=== PATIENT | male | born 1970 | race Caucasian/White ===

== ENCOUNTER 2017-10-30 19:41 | Emergency (ER) | payer OTHER ==
[~2017-10-30] VITALS: Ht 185.4 cm; Wt 93.7 kg
[2017-10-30 19:45] VITALS: BP 161/98; PULSE 70; RESP 14; TEMP 97.9; O2SAT 96
[2017-10-30] MEDS ORDERED: ASPI-516 CHEW (19:53)
--- NOTE | 2017-10-30 19:58 | PD ---
HPI Chief Complaint: Foreign Body Time Seen by Provider: 19:48 Travel History International Travel<30 days: No Contact w/Intl Traveler<30days: No Traveled to known affect area: No History of Present Illness HPI 47-year-old male presents to the emergency department for evaluation of a fishhook embedded in the right calf for approximately 1 hour. Patient states that it was sticking out but he cut it off thinking that that was the appropriate way to remove it. Reports very mild pain at the site. Is uncertain of his tetanus status. Has no other symptoms to report. PFSH Social History Alcohol Use: Yes Tobacco Use: No Substance Use: No Allergies-Medications (Allergen,Severity, Reaction): Coded Allergies: No Known Allergies (Unverified , 10/30/17) Reported Meds & Prescriptions Reported Meds & Active Scripts Active Ibuprofen 600 Mg Tab 600 Mg PO Q8HR PRN Cipro (Ciprofloxacin HCl) 500 Mg Tab 500 Mg PO BID 10 Days Reported Aspirin 81 Mg Chew 81 Mg CHEW DAILY Review of Systems Except as stated in HPI: all other systems reviewed are Neg Physical Exam Narrative GENERAL: Well-nourished, well-developed male patient, ambulatory and in no acute distress. SKIN: Focused skin assessment warm/dry. HEAD: Normocephalic. EYES: No scleral icterus. No injection or drainage. NECK: Supple, trachea midline. No JVD or lymphadenopathy. CARDIOVASCULAR: Regular rate and rhythm without murmurs, gallops, or rubs. RESPIRATORY: Breath sounds equal bilaterally. No accessory muscle use. MUSCULOSKELETAL: No cyanosis, or edema. There is a puncture wound in the mid right calf. Bleeding is controlled. No visible foreign body BACK: Nontender without obvious deformity. No CVA tenderness. Data Data Last Documented VS Vital Signs Date Time Temp Pulse Resp B/P (MAP) Pulse Ox O2 Delivery O2 Flow Rate FiO2 10/30/17 19:45 97.9 70 14 161/98 (119) 96 Orders Orders Lidocai-Epi 1%-1:100,000 Inj (Xylocaine- (10/30/17 20:00) Tibia/Fibula (Ap/Lat) (10/30/17 ) Tetanus/Diphtheria Tox Adult (Tetanus/Di (10/30/17 20:15) Acetamin-Hydrocod 325-5 Mg ([place] 5-325 (10/30/17 20:15) Ed Discharge Order (10/30/17 21:09) [facility] Medical Decision Making Medical Screen Exam Complete: Yes Emergency Medical Condition: Yes Medical Record Reviewed: Yes Differential Diagnosis Foreign body versus puncture wound versus hematoma versus abscess versus cellulitis Narrative Course 47-year-old male presents to the emergency department for evaluation of a fishhook embedded in the right calf. The foreign body is not visible. It is not palpable. There is a puncture wound where the patient states it went in. X -ray imaging confirms a foreign body. I've discussed patient my attending who has assisted in removal of the foreign body. One stitches placed following removal. Patient will be started on oral antibiotics empirically. He is updated on his tetanus. He is counseled on care. He agrees to return immediately to the emergency department with any acute worsening symptoms. Procedures Procedure Narrative The right calf is sterilely prepped with Betadine. A 2 cm incision site is made over the site of the foreign body. Skin retractors are utilized to hold the skin back. Foreign-body is identified and removed using forceps. Aseptic technique was utilized during the entire procedure. Patient tolerated this well. Diagnosis Primary Impression: Soft tissues foreign body Referrals: Primary Care Physician Patient Instructions: General Instructions, Soft Tissue Foreign Body (ED) Additional Instructions: Keep the area clean Elevate to reduce pain and swelling Start antibiotic tomorrow. Take it until it is all gone Suture is to be removed in 10 days. This can be done emergency department by her primary care provider's office Return immediately with any acute worsening symptoms Med/Other Pt SpecificInfo: Prescription(s) given Scripts Ibuprofen (Ibuprofen) 600 Mg Tab 600 MG PO Q8HR Y for PAIN, #30 TAB 0 Refills Prov: Lucrecia Cervantes 10/30/17 Ciprofloxacin (Cipro) 500 Mg Tab 500 MG PO BID for Infection for 10 Days, #20 TAB 0 Refills Prov: Lucrecia Cervantes 10/30/17 Disposition: 01 DISCHARGE HOME Condition: Stable Lucrecia Cervantes Oct 30, 2017 19:58
[2017-10-30] MEDS ORDERED: LIDOCAINE 1%/EPINEPHrine 1:100,000 SOLN 20 ML VIAL INFIL ONE (20:00)
[2017-10-30] MEDS ORDERED: ACETAMINOPHEN/HYDROcodone 325 MG/5 MG TAB PO ONE (20:15)
[2017-10-30] MEDS ORDERED: TETANUS/DIPHTHERIA TOXOID ADULT 0.5 ML VIAL IM ONE (20:15)
--- NOTE | 2017-10-30 20:47 | RADRPT ---
EXAM DATE/TIME: 10/30/2017 20:23 [place] COMPARISON: No previous studies available for comparison. INDICATIONS : Evaluate for foreign body. Fish hook caught in right calf region. MEDICAL HISTORY : None. SURGICAL HISTORY : None. ENCOUNTER: Initial ACUITY: 1 day PAIN SCORE: 4/10 LOCATION: Right tibia/fibula FINDINGS: Distal portion of a fishhook, including the aliyah, noted in the soft tissues posteriorly of the mid le g. The fishhook fragment is proximally 7 mm beneath the skin. No bony abnormality demonstrated. CONCLUSION: Fragment of a fishhook in the subcutaneous soft tissues posteriorly of the mid leg. Isacc Varner MD on October 30, 2017 at 20:44 Board Certified Radiologist. This report was verified electronically.
[2017-10-30] MEDS ORDERED: IBUP-232 PO (21:11)
[2017-10-30] MEDS ORDERED: CIPR-9 PO (21:11)
== END 2017-10-30 21:21 | disposition home or self-care (01) ==
LOC: PHEFT 19:41
DX: M79.5 Residual foreign body in soft tissue (principal); Z23 Encounter for immunization; W45.8XXA Other foreign body or object entering through skin, initial encounter
CPT/HCPCS: 10120; 73590; 90471; 90714